=== PATIENT | female | born 1995 | race Caucasian/White ===

== ENCOUNTER → 2021-03-02 | Outpatient (CLI) | payer BC ==
--- NOTE | 2021-03-02 16:53 | Diagnostic Imaging Report ---
EXAMINATION: US neck. TECHNIQUE: Multiple real-time grayscale images were obtained of the neck in various projections. HISTORY: Right neck swelling. COMPARISON: None available. FINDINGS: Within the right neck in the region of concern, there are multiple prominent but not pathologically enlarged lymph nodes. The largest measures 1.0 x 0.9 x 2.5 cm. No other focal mass, fluid collection or pathologically enlarged lymph nodes. IMPRESSION: Multiple normal-appearing but prominent lymph nodes within the right neck in the palpable region of concern. No other focal abnormality. Dictated by: Dictated on workstation # [id number]
== END ==
LOC: RAD 15:15
PROVIDERS: ATTEND Family Medicine
DX: R22.1 Localized swelling, mass and lump, neck (principal)
CPT/HCPCS: 76536

== ENCOUNTER 2022-02-23 16:32 | Emergency (ER) | payer OTHER, BC ==
[~2022-02-23] VITALS: Ht 165.1 cm; Wt 84.6 kg
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
--- NOTE | 2022-02-23 17:20 | Diagnostic Imaging Report ---
INDICATION: Pain. EXAMINATION: PA and lateral views were obtained. FINDINGS: The heart size, mediastinal configuration, and pulmonary vascularity are within normal limits. There is no pleural effusion, pneumothorax, or pneumonia. The osseous structures are unremarkable. IMPRESSION: No acute cardiopulmonary abnormality. Dictated by: Dictated on workstation # [id number]
--- NOTE | 2022-02-23 17:23 | Diagnostic Imaging Report ---
INDICATION: Neck pain. TECHNIQUE: Five views were obtained. FINDINGS: There is reversal of the normal cervical lordosis. The vertebral body heights are well maintained. There is no fracture or traumatic subluxation. The odontoid is intact and the lateral masses are well aligned. Prevertebral soft tissues are within normal limits. The lung apices are clear. IMPRESSION: Reversal of the normal cervical lordosis, otherwise unremarkable. Dictated by: Dictated on workstation # [id number]
[2022-02-23] MEDS ORDERED: IBUPROFEN 600 MG (MOTRIN) TAB PO ONE (17:45)
[2022-02-23] MEDS ORDERED: CYCL10TA25 PO (17:47)
[2022-02-23] MEDS ORDERED: TRM50T PO (17:47)
[2022-02-23 17:54] VITALS: BP 134/87
== END 2022-02-23 17:53 | disposition home or self-care (01) ==
LOC: EDUNIT# 16:32 → ER FS 16:33
DX: S13.4XXA Sprain of ligaments of cervical spine, initial encounter (principal); S29.012A Strain of muscle and tendon of back wall of thorax, initial encounter; Y04.2XXA Assault by strike against or bumped into by another person, initial encounter; Y92.219 Unspecified school as the place of occurrence of the external cause
CPT/HCPCS: 71046; 72040